=== PATIENT | female | born 2005 | race African-American/Black ===

== ENCOUNTER 2025-06-20 15:02 | Emergency (ER) | payer MEDICAID, SELFPAY ==
--- OUTSIDE RECORDS SUMMARY | 2024-11-20 04:30 | XMS_ITS ---
Author Organization [facility] Address [address] [place] [address] Care Team Providers Care Computer Graphic Designer Name Role Phone None, No PCP Primary Care Provider Mary French [phone] REASON FOR VISIT Abnormal Cycle Encounters Encounter Location Date Provider Diagnosis [place] [address] [place] [address] 11/20/2024 Mary Onofre Plan Of Treatment No Information Progress Notes * Simone ARROYOaDOB:2005 (19 yo F)Acc No.[id number]:11/20/2024 Patient:?Carter ARROYO :?Mary Onofre MDDOB:2005???Age:19 Y ???Sex:FemaleDate:11/20/2024Phone:[phone]:[address] [place] [address]Pcp:No PCP None Subjective: * Chief Complaints: * 1 . Abnormal Cycle. * Medical History: Objective: * Vitals: Assessment: Plan: * Treatment: * Images: Billing Information: * Visit Code: * Procedure Codes: * Electronic signature of Mary Onofre MD on 06/20/2025 at 05:25 PM MANUAL WRITER Sign off status: Pending * Provider: Pipe Onofre MD Date: 0 11/20/2024 Generated for Printing/Faxing/eTransmitting on:?06/20/2025 05:25 PM MANUAL WRITER
--- OUTSIDE RECORDS SUMMARY | 2024-11-20 05:00 | XMS_ITS ---
Author Organization [facility] Address [address] [place] [address] Care Team Providers Care Freight Manager Name Role Phone None, No PCP Primary Care Provider Mary French Allergies No Known Allergies REASON FOR VISIT AUB, concerns, lmp, aml/warper creeler Problems Problem Type SNOMED Code ICD Code Onset Dates Problem Status W/U Status Risk Notes Problem Abnormal uterine bleeding (80758 [id number]) Abnormal uterine bleeding (N93.9) Activeconfirmed Encounters Encounter Location Date Provider Diagnosis [place] [address] [place] [address] 11/20/2024 Mary Onofre Abnormal uterine bleeding N93.9 Assessments Encounter Date Diagnosis (ICD Code) Assessment Notes Treatment Notes Treatment Clinical Notes Section Notes 11/20/2024 Abnormal uterine bleeding (ICD-1 0 - N93.9) Plan Of Treatment No Information Progress Notes * JIMENEZHOSSEINIkeB:2005 (19 yo F)Acc No.[id number]:11/20/2024 Patient:?Carter MCKEON :?ERIC LauOB:2005???Age:19 Y ???Sex:FemaleDate:11/20/2024Phone:[phone]:[address] [place] [address]Pcp:No PCP None Subjective: * Chief Complaints: * 1 . AUB. 2. Concerns. 3. Lmp. 4. Aml/warper creeler. * HPI: ???*General:? Patient presenting for abnormal uterine bleeding.? She had an ultrasound done today showing. * Medical History: M edical History Verified. * Surgical History: D enies Past Surgical History. * Hospitalization/Major Diagno stic Procedure: D enies Past Hospitalization. * Family History: N o Family History documented.. * Allergies: N .K.D.A. Objective: * Vitals: * Examination: ???*General Examination: ?GENERAL APPEARANCE:?in no acute distress, alert, well hydrated, in no distress.? Assessment: * Assessment: 1.?Abnormal uterine bleeding - N93.9 (Primary)??? Plan: * Treatment: * Preventive Medicine: ??YOUR PREVENTIVE WELLNESS PLAN:?Breast Cancer Screening (Mammogram):?My last mammogram was done on:?Under 40yrs ?Cervical Cancer Screening (Pap Smear):?My last Pap smear was done on:?Under 21 years old ?Osteoporosis Screening (Bone Density Measurement):?My last bone density was done on:?Under 65yr ?Colorectal Cancer Screening:?Last Done Colonoscopy?Under 45yrs * Images: Billing Information: * Visit Code: 58637 Office Visit, New Pt., Level 3. * Procedure Codes: * Electronic signature of Mary Onofre MD on 06/20/2025 at 05:25 PM INSPECTOR FINAL ASSEMBLY ELECTRICAL Sign off status: Pending * Provider: Pipe Onofre MD Date: 0 11/20/2024 Generated for Printing/Faxing/eTransmitting on:?06/20/2025 05:25 PM INSPECTOR FINAL ASSEMBLY ELECTRICAL History and Physical Notes * HPI (History of Present Illness) CategorySub-CategoryDetailNotesCategory Notes*GeneralPatient presenting for abnormal uterine bleeding. She had an ultrasound done today showing Examination CategorySub-CategoryDetailNotesCategory Notes*General ExaminationGENERAL APPEARANCE:in no acute distress, alert, well hydrated, in no distress
--- OUTSIDE RECORDS SUMMARY | 2025-01-29 04:00 | XMS_ITS ---
Author Organization [facility] Address [address] [place] [address] Care Team Providers Care Automotive Assembler Name Role Phone None, No PCP Primary Care Provider Mary French Unavailable Allie Orellana Unavailable [phone] REASON FOR VISIT LMP 6/5 Encounters Encounter Location Date Provider Diagnosis [place] [address] [place] [address] 01/29/2025 Allie Orellana Plan Of Treatment No Information Progress Notes * Simone MCKEONKamarB:2005 (19 yo F)Acc No.[id number]:01/29/2025 Patient:?Carter MCKEON :?RUIZ Acevedo CNMDOB:2005???Age:19 Y???Sex:FemaleDate:01/29/2025Phone:[phone]:[address] [place] [phone]:No PCP NoneCheck In:09:08 AM CSTCheck Out:04:36 PM POURER BULL LADLE Subjective: * Chief Complaints: * 1 . LMP 6/5. * Medical History: Objective: * Vitals: Assessment: Plan: * Treatment: Care Plan: * Problems: * Images: Billing Information: * Visit Code: * Procedure Codes: * Electronic signature of Allie Orellana CNM on 06/20/2025 at 05:25 PM CSTSign off status: Pending * Provider: RUIZ Baca CNM Date: 0 01/29/2025 Generated for Printing/Faxing/eTransmitting on:?06/20/2025 05:25 PM POURER BULL LADLE
[2025-06-20 15:10] VITALS: BP 106/70; PULSE 78; RESP 18; TEMP 36.3; O2SAT 97; BMI 25.3
--- NOTE | 2025-06-20 16:27 | ED_ITS ---
HPI - General Adult General Date Seen: 06/20/25 Chief complaint: Breast Symptoms Stated complaint: breast pain/swelling Time Seen by Provider: 06/20/25 16:25 History of Present Illness HPI narrative: 19 yo F presenting to the ER today with pain and swelling involving both of her breasts. At symptoms started on Tuesday, 5 days ago with her right breast and now is spread to be bilateral. (triage note says that the pain started in her left breast, but the patient tells me that it was actually her right breast hurting 1st, and her left best coming later) She says both breasts are tender all over, without any focal area of swelling or pain or redness., nipples have a burning sensation. She tried to take some Tylenol last night but it is not helping. She has not had a fever. No breast drainage or bleeding. No rash. No redness. No lumps in her armpits. No other painful areas. She does not think she is because she has not had sex in 4 months and did have a menstrual cycle about 18 days ago. She is here with her daughter who is toddler/preschool age. She is not currently . No breast injuries. Related Data Home Medications ?Medication ?Instructions ?Recorded ?Confirmed No Known Home Medications 06/20/2506/03 Allergies Allergy/AdvReac Type Severity Reaction Status Date / Time No Known Drug Allergies Allergy Verified 06/20/25 15:20 Exam Narrative: Exam Narrative: Constitutional: Appears well-developed and well-nourished. Alert. Conversant. Non toxic. Polite. HENT: Head: Atraumatic. Nose: Nose normal. Mouth/Throat: Oral mucosa is clear and moist. no trismus. Pharynx normal. Tonsils symmetric. No tonsillar enlargement, erythema, or exudate. Eyes: Conjunctivae normal. EOM normal. Pupils equal, round, and reactive to light. No scleral icterus. Neck: Normal range of motion. Neck supple. No tracheal deviation present. Cardiovascular: Normal rate, regular rhythm. No gallop. No friction rub. No murmur heard. Symmetric radial artery pulses Pulmonary/Chest: Effort normal. No stridor. No respiratory distress. No wheezes. No rales. No rhonchi . No tenderness. Breast exam: Performed with female fork assembler. Both breasts are normal. I do not see any areas of redness or swelling. She reports that both breasts have generalized tenderness. No focal area of tenderness. No palpable lumps or fluctuant areas. Nipple an aerial I are normal bilaterally. I do not see any nipple drainage or fluid leakage. No palpable axillary adenopathy bilaterally. No other tenderness of her chest wall. Abdominal: Soft. Bowel sounds normal. No distension. No mass. No tenderness. No rebound. No guarding. Musculoskeletal: RUE: Normal range of motion. No tenderness. No deformity LUE: Normal range of motion. No tenderness. No deformity RLE: Normal range of motion. No edema. No tenderness. No deformity LLE: Normal range of motion. No edema. No tenderness. No deformity Lymph: No axillary adenopathy. Neurological: Alert and oriented to person, place, and time. Normal strength. CN II-VII intact. No sensory deficit. GCS eye subscore is 4. GCS verbal subscore is 5. GCS motor subscore is 6. Normal coordination Skin: Skin is warm and dry. No rash noted. No pallor. Normal capillary refill. Psychiatric: Normal mood. Normal affect. Const: Vital Signs, click to edit/add: Vital Signs - 24 hr 06/20/25 15:10 Temperature 97.4 F L Pulse Rate [Right Pulse Oximeter] 78 Respiratory Rate 18 Blood Pressure [Ri ght Upper Arm] 106/70 Pulse Oximetry 97 Oxygen Delivery Me thod Room Air Course Vital Signs Vital signs: Initial Vital Signs Temperature 97.4 F L 06/20/25 15:10 Temperature Source Temporal Artery Scan 06/20/25 15:10 Pulse Rate 78 06/20/25 15:10 Respiratory Rate 18 06/20/25 15:10 Blood Pressure 106/70 06/20/25 15:10 Blood Pressure Mean 82 06/20/25 15:10 Blood Pressure Position Sitting 06/20/25 15:10 Pulse Oximetry 97 06/20/25 15:10 Oxygen Delivery Method Room Air 06/20/25 15:10 Vital Signs Temperature 97.4 F L 06/20/25 15:10 Pulse Rate 78 06/20/25 15:10 Respiratory Rate 18 06/20/25 15:10 Blood Pressure 106/70 06/20/25 15:10 Pulse Oximetry 97 06/20/25 15:10 Oxygen Delivery Method Room Air 06/20/25 15:10 Temperature 97.4 F L 06/20/25 15:10 Pulse Rate 78 06/20/25 15:10 Respiratory Rate 18 06/20/25 15:10 Blood Pressure 106/70 06/20/25 15:10 Pulse Oximetry 97 06/20/25 15:10 Oxygen Delivery Method Room Air 06/20/25 15:10 Medical Decision Making MDM Narrative Medical decision making narrative: Pleasant 19-year-old female who his not currently thought to be and is not currently presents with bilateral breast pain ongoing for the past 4 or 5 days. Differential is broad. At this point no evidence for any mastitis or breast abscess since there is no evidence for any redness, swelling, fluctuance, or adenopathy on exam. She does not have a fever her white count is normal. She has not been sexually active for 4 months in LMP was about 18 days ago, but we did check test with her bilateral breast tenderness and it is negative. I do think this test is reliable and the patient is not . Other labs are reassuring. Differential would also include breast trauma but she denies any injury. There is no signs of any bruising or abrasions. No other signs of chest wall injury. I do not think this pain represents costochondritis or rib injury. The pain is clearly not cardiac in nature. She denies any new bras or any recent change in breast size, other than that they feel little bit more full and tender since the pain started. This does not appear to be a issue with poor brought fitting. Also consider hormonal related cyclic mastalgia. At this point workup for the emergent causes of breast pain is reassuring. I think the patient is safe to discharge home with careful outpatient monitoring and follow-up. Will send a prescription for ibuprofen 800 mg that she can use t.i.d. p.r.n.. Also, I do think the patient needs follow-up with the [facility]. She will call the clinic tomorrow to arrange an ER follow-up visit. (Her former primary care was with [facility] [place] but she does not currently have any medical care since she will be here to [place].) Precautions for return to the ER reviewed. Lab Data Labs: Lab Results 06/20/25 06/20/25 Range/Units 16:44 16:49 WBC 5.87 (4.50-11.00) K/uL RBC 4.21 (4.00-5.20) m/uL Hgb 12.3 (12.0-16.0) gm/dL Hct 39.4 (33.0-51.0) % MCV 94 (80-100) fL MCH 29 (26-34) pg MCHC 31 L (32-36) gm/dL RDW Coeff of Rossy 12.3 (11.5-15.5) % Plt Count 381 (140-440) K/uL Neut % (Auto) 50.8 (42.0-72.0) % Lymph % (Auto) 39.5 (20-44) % Bremer % (Auto) 8.5 (0.0-11.0) % Eos % (Auto) 0.7 (0.0-7.0) % Baso % (Auto) 0.5 (0.0-3.0) % Neut # (Auto) 2.98 (1.7-7.0) K/uL Lymph # (Auto) 2.32 (0.90-2.90) K/uL Bremer # (Auto) 0.50 (0.00-0.90) K/UL Eos # (Auto) 0.04 (0.00-0.50) K/uL Baso # (Auto) 0.03 (0.00-0.30) K/uL Abs Immat Gran (auto) 0.00 (0.00-0.30) K/uL Imm/Tot Granulo (auto) 0.0 % Sodium 137 (135-149) mmol/L Potassium 3.8 (3.6-5.1) mmol/L Chloride 106 (96-114) mmol/L Carbon Dioxide 22 (20-32) mmol/L Anion Gap 9 (7-15) mEq/L BUN 12 (5-24) mg/dL Creatinine 0.6 (0.5-1.5) mg/dL Estimated Creat Clear 112.86 Estimated GFR 132 ml/min Glucose 92 (60-115) mg/dL Calcium 9.1 (8.4-10.6) mg/dL Urine HCG, Qual Negative (Negative) Discharge Plan Discharge Clinical Impression: Breast pain in female Patient Disposition: Home, Self-Care Condition: Stable Instructions: and Nipple Soreness (ED) Additional Instructions: As we discussed, the cause of your breast pain is not definitively clear based on your workup here in the ER. So far we do not see any signs of infection or other serious life-threatening problem. You are not based on her test today. I do want you to follow-up with the [facility] as soon as possible. Call [phone] tomorrow morning to arrange an ER follow-up visit for within 5-7 days. Temporarily you can use the prescription strength ibuprofen (800 mg) 3 times a day as needed. As we discussed, please come back to the ER if you have worsening pain, fever, new redness or lumps in your breast, or if you have any other concerns. Prescriptions: No Action No Known Home Medications Follow Up/Referrals: Provider,Not a Local [Primary Care Provider, Family Practice] Stand Alone Forms: Shippable Info Instructions
[2025-06-20 17:02] LABS: Ur HCG Qualitative* Negative (Negative)
[2025-06-20 17:04] LABS: Hematocrit* 39.4 % (33.0-51.0); Hemoglobin* 12.3 gm/dL (12.0-16.0); Immature Granulocytes Abs Auto 0.00 K/uL (0.00-0.30); Immature Granulocytes Pct Auto 0.0 %; Lymphocytes Absolute Auto 2.32 K/uL (0.90-2.90); Mean Corpuscular HGB Conc 31 gm/dL (32-36); Mean Corpuscular Hemoglobin 29 pg (26-34); Mean Corpuscular Volume 94 fL (80-100); RDW Coefficient of Variation % 12.3 % (11.5-15.5); Red Blood Count* 4.21 m/uL (4.00-5.20); White Blood Count* 5.87 K/uL (4.50-11.00)
[2025-06-20 17:08] LABS: Slide Review Reflex No
[2025-06-20 17:10] LABS: Chloride* 106 mmol/L (96-114); Potassium* 3.8 mmol/L (3.6-5.1); Sodium* 137 mmol/L (135-149)
[2025-06-20 17:13] LABS: Anion Gap 9 mEq/L (7-15); Blood Urea Nitrogen* 12 mg/dL (5-24); Calcium* 9.1 mg/dL (8.4-10.6); Carbon Dioxide* 22 mmol/L (20-32); Creatinine* 0.6 mg/dL (0.5-1.5); Est. Creatinine Clearance* 112.86; Estimated Glomerular Filt Rate 132 ml/min; Glucose* 92 mg/dL (60-115)
--- OUTSIDE RECORDS SUMMARY | 2025-06-20 17:25 | XMS_ITS | Patient Health Record ---
Author Organization [facility] Address [address] [place] [address] Care Team Providers Care Underground Mine Superintendent Name Role Phone None, No PCP Primary Care Provider Mary French Unavailable Allie Orellana Unavailable [phone] Allergies No Known Allergies Results Component Value Reference Range Notes Test, Urine Reviewed date:01/29/2025 09:54:56 AM Interpretation:Negative Performing Lab: Notes/Report: Testosterone, Total (IH) Reviewed date:11/29/2024 02:45:36 PM Interpretation: Performing Lab: Notes/Report: Tito 2 ([id number])Luis Alfredo - Lab T3, FREE Reviewed date:11/29/2024 02:48:35 PM Interpretation: Performing Lab:JACQUELINE Facio-Xquva [id number] [facility], [facility]eps[facility]Q[address] Eddie Levin Notes/Report: 0 0 0 0 0 0 0 0 0 T3, FREE 3.2 3.0-4.7 pg/mL NO COLLECTION DATE RECEIVED. WE HAVE USED THE DATE THE SPECIMEN WAS RECEIVED BY THIS LABORATORY THE COLLECTION DATE. IF THIS IS INCORRECT, PLEASE CONTACT CLIENT SERVICES. PHONE NUMBER: [phone] TSH Reviewed date:11/29/2024 02:48:35 PM Interpretation: Performing Lab:JACQUELINE Facio-Xquva [address], [facility] RochesterUgwtFA[address] Eddie Levin Notes/Report: 0 0 0 0 0 0 0 0 0 TSH 0.59 Reference Range > or = 20 Years 0.40-4.50 Ranges First trimester 0.26-2.66 Second trimester 0.55-2.73 Third trimester 0.43-2.91 T4, FREE Reviewed date:11/29/2024 02:48:35 PM Interpretation: Performing Lab:JACQUELINE FacioXquva [id number], [place] [address]HpwsOE[address] Eddie Levin Notes/Report: 0 0 0 0 0 0 0 0 0T4, FREE1.10.8-1.4 ng/dLPROLACTIN Reviewed date:11/29/2024 02:48:35 PM Interpretation: Performing Lab:JACQUELINE FacioXquva Vzpd8635 [facility], [place] [address] Eddie Levin Notes/Report: 0 0 0 0 0 0 0 0 6YBFWILEWP1.2 Reference Range Females Non- 3.0-30.0 10.0-209.0 Postmenopausal 2.0-20.0 FSH Reviewed date:11/29/2024 02:48:35 PM Interpretation: Performing Lab:JACQUELINE FacioXquva Veub[address] [facility], [place] [address] Eddie Levin Notes/Report: 0 0 0 0 0 0 0 0 0FSH3.9 Follicular Phase 2.5-10.2 Mid-cycle Peak 3.1-17.7 Luteal Phase 1.5- 9.1 Postmenopausal 23.0-116.3 Reference Range DHEA SULFATE Reviewed date:11/29/2024 02:48:35 PM Interpretation: Performing Lab:JACQUELINE FacioXquva Saia[address] [place] [address]ZbncIB[address] Eddie Levin Notes/Report: 0 0 0 0 0 0 0 0 0DHEA DLUDTLF58869-526 mcg/dLPROGESTERONE Reviewed date:11/29/2024 02:48:35 PM Interpretation: Performing Lab:JACQUELINE [facility] [employer], [place] [address] Eddie Levin Notes/Report: 0 0 0 0 0 0 0 0 2JBAVVIESGCFZ2.0 Reference Ranges Female Follicular Phase < 1.0 Luteal Phase 2.6-21.5 Post menopausal < 0.5 1st Trimester 4.1-34.0 2nd Trimester 24.0-76.0 3rd Trimester 52.0-302.0 ESTRADIOL Reviewed date:11/29/2024 02:48:35 PM Interpretation: Performing Lab:JACQUELINE Facio-Ab[address]ije[address] OsborneL[address] Eddie Levin Notes/Report: 0 0 0 0 0 0 0 0 3XSFMLQQMQ276 Reference Range Follicular Phase: 19-144 Mid-Cycle: 64-357 Luteal Phase: 56-214 Postmenopausal: < or = 31 Reference range established on post-pubertal patient population. No pre-pubertal reference range established using this assay. For any patients for whom low Estradiol levels are anticipated (e.g. males, pre-pubertal children and hypogonadal/post-menopausal females), the Facio [facility] Estradiol, Ultrasensitive, LCMSMS assay is recommended (order code 48695). Please note: patients being treated with the drug fulvestrant (Faslodex(R)) have demonstrated significant interference in immunoassay methods for estradiol measurement. The cross reactivity could lead to falsely elevated estradiol test results leading to an inappropriate clinical assessment of estrogen status. Facio order code [id number]-Oukkyptpq, Ultrasensitive LC/MS/MS demonstrates negligible cross reactivity with fulvestrant. CBC (INCLUDES DIFF/PLT) Reviewed date:11/29/2024 02:48:35 PM Interpretation: Performing Lab:JACQUELINE Facio-Abhije[address] Larae[address] [facility] CenterAbhijeet MorrisonL[address] Eddie Levin Notes/Report: 0 0 0 0 0 0 0 0 0WHITE BLOOD CELL COUNT5.73.8-10.8 Thousand/uLRED BLOOD CELL COUNT 4.633.80-5.10 Million/bGIFDHSUSDFV54.611.7-15.5 g/qTKGPDFZGHAX00.535.0-45.0 %MCV 94.080.0-100.0 fLMCH29.427.0-33.0 keRARL26.332.0-36.0 g/dL For adults, a slight decrease in the calculated MCHC value (in the range of 30 to 32 g/dL) is most likely not clinically significant; however, it should be interpreted with caution in correlation with other red cell parameters and the patient's clinical condition. RDW12.511.0-15.0 %PLATELET BDZLT367848-540 Thousand/uLMPV9.77.5-12.5 fLABSOLUTE JUXFJYYSNSL65418735-9012 cells/uLABSOLUTE WQEWMVTSRCI7488275-2973 cells/uL ABSOLUTE BGBODKJFP772540-045 cells/uLABSOLUTE JZPSQHZTIPB22142-238 cells/uL ABSOLUTE IKJDQHHUX722-826 cells/pSWJUETTIBZUH93.1AWOFTEJHYLG15.9DDZKUCNXN9.9 EOSINOPHILS1.3MAJWFYRYV6.4 Reason For Referral No Information Social History Tobacco Use: Social History Observation Description Date Details (start date - stop date) Never Smoker NA - NA Tobacco Control (Standard) Question Answer Notes Tobacco use: Nonsmoker Problems Problem Type SNOMED Code ICD Code Onset Dates Problem Status W/U Status Risk Notes Problem Amenorrhea (53964243) Amenorrhea (N91.2) ActiveconfirmedProblemAbnormal uterine bleeding (36014436614452)Abnormal uterine bleeding (N93.9)ActiveconfirmedProblemIrregular menstrual cycle (43978770) Irregular menstrual cycle (N92.6)ActiveconfirmedProblemAnovulation (53763226) Anovulation (N97.0)Activeconfirmed Vital Signs Blood pressure diastolic 72 mm Hg 01/29/2025 Mjretv96 in01/29/2025lood pressure ujrtxyyf513 mm Hg01/29/20258562Uabzdu792.6 lbs 01/29/2025BMI22.79 kg/m201/29/2025 Encounters Encounter Location Date Provider Diagnosis [place] [address] [place] [address] 11/23/2024 Allie Orellana Irregular menstrual cycle N92.6 [place] [address] [place] [address] 01/29/2025 Allie Orellana Amenorrhea N91.2 and Anovulation N97.0 [place] [address] [place] [address] 11/23/2024 Allie Orellana Pelvic pain R10.2 an d Abnormal uterine bleeding (AUB) N93.9 [place] [address] [place] [address] 01/29/2025 Allie Orellana Encounter for supervision of other normal , unspecified trimester Z34.80 [facility] [address] [place] [address] 01/29/2025 Allie Orellana [facility] [place] [address] 01/21/2025Mary Hoffman [place] [address] [place] [address]/29/2025Allie Dasilvatz Assessments Encounter Date Diagnosis (ICD Code) Assessment Notes Treatment Notes Treatment Clinical Notes Section Notes 11/23/2024 Pelvic pain (ICD-10 - R10.2) 11/23/2024bnormal uterine bleeding (AUB) (ICD-10 - N93.9)11/23/2024Irregular menstrual cycle (ICD-10 - N92.6) Discussed patient's menstrual histroy in depth. Reviewed pelvic US from today which offered reassuring findings. Plan to proceed with the following labs: TSH, T3, T4, estradiol, FSH, testosterone, progesterone, and prolactin. Discussed that if lab work is normal, can conider EMB. Reviewed that cyclical abnormalities in late teens to early twenties can be related to immature HPOaxis as well. 40 minutes spent on chart review, in face to face time with patient, documentation of above and coordination of care. 01/29/2025Encounter for supervision of other normal , unspecified trimester (ICD-10 - Z34.80)01/29/2025menorrhea (ICD-10 - N91.2)01/29/2025 Anovulation (ICD-10 - N97.0) Discussed that her bleeding in early December likely correlates to be withdrawal bleeding after completing progesterone challenge test in late November. Reviewed that withdrawal bleeding can indicate anovulation. PCOS labs were collected at visit in November, and were all WNL so do not likely suspect this diagnosis. Reviewed that cyclical abnormalities in late teens to early twenties can be related to immatureHPO axis, and that this can often regulate over time as HPO axis matures. Patient does desire in the near future. Discussed implementing the following lifestyle modifications in hopes of regulating ovulation. Discussed that if after several months of these modifications she is not noticing any changes to her cycles, we could then consider trial of medication tohelp induce ovulation such as letrozole or clomid. She is comfortable with this plan. Exercise: improves glocose uptake into cells during exercise and by building muscle to improve insulin sensitivity when at rest. Diet: The [place] Diet (focus on protein and intermittent fasting) Supplements: Magnesium Biglycinate 300mg Myoinositol; amplifies the effect of insulin inside cells. 2-6 grams/day Plan Of Treatment No Information Insurance Providers Payer Name Payer Address Payer Phone Subscriber Number Group Number Insured Name Patient Relationship to Insured Coverage Start Date Coverage End Date [facility] [address] [place], [place] [address] [id number], JameiaSelf - patient is the insured Medical (General) History Medical History History ICD Code Depression/ Anxiety Hospitalization History Reason Date(Month/Year) childbirth
[2025-06-20 18:02] VITALS: BP 108/72; PULSE 77; RESP 18; O2SAT 99
== END 2025-06-20 18:03 | disposition home or self-care (01) ==
PROVIDERS: Emergency Provider Emergency Medicine
DX: N64.4 Mastodynia (principal); Z32.02 Encounter for pregnancy test, result negative
CPT/HCPCS: 36415; 80048; 81025; 85025; 99283; 99284